=== PATIENT | female | born 1985 | race American Indian/Alaskan Native ===

== ENCOUNTER 2016-09-08 12:02 | Emergency (ER) | payer SELFPAY ==
[2016-09-08 13:35] LABS: Eosinophils % (Auto) 0.9 % (0.0-4.3); Hematocrit 29.6 % (30.3-42.9); Hemoglobin 9.2 gm/dl (10.1-14.3); Mean Corpuscular HGB Conc 31 % (30-34); Mean Corpuscular Volume 77 fl (79-97); Platelet Count 567 K/mm3 (140-440); Red Blood Count 3.86 M/mm3 (3.65-5.03); Red Cell Distribution Width 17.5 % (13.2-15.2); White Blood Count 6.5 K/mm3 (4.5-11.0)
--- NOTE | 2016-09-08 14:09 | Emergency Department Report ---
ED Female HPI - General Chief complaint: Vaginal Bleeding Stated complaint: ? WKS PREG/CRAMPS/BLEEDING Time Seen by Provider: 09/08/16 14:06 Source: patient Mode of arrival: Ambulatory Limitations: No Limitations - History of Present Illness Initial comments: 31-year-old female past medical history one miscarriage and one currently , smoker presents with complaint of one week of intermittent vaginal bleeding and spotting some clot discharge from the vagina. Changing through 3-4-5 pads a day. Patient complaining of crampy lower abdominal pain radiating to back. Denies any fevers or chills no nausea or vomiting. States she took a home test 3 days ago which was positive. Last menstrual period was 07/09/2016 per patient. Denies any dysuria or vaginal discharge otherwise. MD Complaint: vaginal bleeding Onset/Timin -: week(s) Radiation: suprapubic Severity: moderate Severity scale (0 -10): 5 Quality: cramping Consistency: intermittent Improves with: none Worsens with: none Are you Now?: Yes Last Menstrual Period: 07/09/16 EDC: 04/15/17 - Related Data Previous Rx's Medication Instructions Recorded Last Taken Type Acetaminophen [Acetaminophen TAB] 500 mg PO Q6HR PRN #25 tablet 09/08/16 Unknown Rx Allergies Allergy/AdvReac Type Severity Reaction Status Date / Time No Known Allergies Allergy Verified 09/08/16 12:53 ED Review of Systems ROS: Stated complaint: ? WKS PREG/CRAMPS/BLEEDING Other details as noted in HPI Constitutional: denies: chills, fever Eyes: denies: eye pain, eye discharge, vision change ENT: denies: ear pain, throat pain Respiratory: denies: cough, shortness of breath, wheezing Cardiovascular: denies: chest pain, palpitations Endocrine: no symptoms reported Gastrointestinal: denies: abdominal pain, nausea, diarrhea Genitourinary: as per HPI (1 week of intermittent vaginal bleeding). denies: urgency, dysuria, discharge Musculoskeletal: denies: back pain, joint swelling, arthralgia Skin: denies: rash, lesions Neurological: denies: headache, weakness, paresthesias Psychiatric: denies: anxiety, depression Hematological/Lymphatic: denies: easy bleeding, easy bruising ED Past Medical Hx - Past Medical History Previous Medical History?: Yes Hx Asthma: Yes - Surgical History Past Surgical History?: No - Social History Smoking Status: Never Smoker Substance Use Type: Alcohol - Medications Home Medications: Home Medications Medication Instructions Recorded Confirmed Last Taken Type Acetaminophen [Acetaminophen TAB] 500 mg PO Q6HR PRN #25 tablet 09/08/16 Unknown Rx ED Physical Exam - General Limitations: No Limitations General appearance: alert, in no apparent distress - Head Head exam: Present: atraumatic, normocephalic - Eye Eye exam: Present: normal appearance, PERRL, EOMI - ENT ENT exam: Present: mucous membranes moist - Neck Neck exam: Present: normal inspection - Respiratory Respiratory exam: Present: normal lung sounds bilaterally. Absent: respiratory distress - Cardiovascular Cardiovascular Exam: Present: regular rate, normal rhythm. Absent: systolic murmur, diastolic murmur, rubs, gallop - GI/Abdominal GI/Abdominal exam: Present: soft, normal bowel sounds - External exam: Present: normal external exam Speculum exam: Present: vaginal bleeding Bi-manual exam: Present: normal bi-manual exam - Extremities Exam Extremities exam: Present: normal inspection - Back Exam Back exam: Present: normal inspection - Neurological Exam Neurological exam: Present: alert, oriented X3, CN II-XII intact, normal gait - Psychiatric Psychiatric exam: Present: normal affect, normal mood - Skin Skin exam: Present: warm, dry, intact, normal color. Absent: rash ED Course Vital Signs 09/08/16 12:50 Temperature 97.8 F Pulse Rate 79 Respiratory 16 Rate Blood Pressure 110/72 O2 Sat by Pulse 100 Oximetry ED Medical Decision Making - Lab Data Result diagrams: 09/08/16 13:02 09/08/16 14:13 - Medical Decision Making A/P: with vaginal bleeding, possible miscarriage versus early versus ectopic 1-ultrasound shows no sonographic evidence of intrauterine at this time, both ovaries visualized, hCG level 411 2-patient has minimal to no adnexal or cervical motion pain on exam 3-hemoglobin 9.4 hematocrit 29, patient is taking iron supplementation 4- I discussed case with Dr. Pollack, study specialist who is health information tech. As per Dr. Pollack patient to have repeat ultrasound and hCG level in 48 hours either in office or can come to the emergency room if necessary. I instructed the patient to return to the ED in 48 hours for repeat ultrasound and hCG if she cannot schedule an appointment or follow-up with Dr. Pollack in 48 hours. I advised patient that should she develop severe nausea and vomiting fever or chills or vaginal hemorrhage to return to the ED immediately. I also advised to return to the ED if she develops severe sharp abdominal pain with associated heavy bleeding. Patient stated that she understood my instructions clearly and will follow-up with Dr. Pollack or come to the ED if she could not schedule an appointment. Critical care attestation.: If time is entered above; I have spent that time in minutes in the direct care of this critically ill patient, excluding procedure time. ED Disposition Clinical Impression: Vaginal bleeding before 22 weeks gestation, Miscarriage, threatened, early Disposition: TO HOME OR SELFCARE Is pt being admited?: No Does the pt Need Aspirin: No Condition: Stable Instructions: Threatened Miscarriage (ED), Ectopic (ED) Additional Instructions: Patient advised to follow-up in the ED in 48 hours for repeat ultrasound and hCG level if she cannot follow-up with [facility]. I gave patient precautions on ectopic and advised her to return if she develops heavy bleeding with associated sharp pain with fever and chills with associated nausea and vomiting Prescriptions: Acetaminophen [Acetaminophen TAB] 500 mg PO Q6HR PRN #25 tablet PRN Reason: Pain Referrals: [facility] [Provider Group] - 3-5 Days KARLA PEÑA MD [Staff Physician] - 3-5 Days Forms: Work/School Release Form(ED) Time of Disposition: 17:49
[2016-09-08 14:12] LABS: Mean Corpuscular Hemoglobin 24 pg (28-32)
[2016-09-08 14:21] LABS: Bacteria,Urine 1+ /HPF (Negative); Bilirubin,Urine NEG (Negative); Blood,Urine MOD (Negative); Ketones,Urine NEG (Negative); Leukocyte Esterase,Urine NEG (Negative); Mucus,Urine FEW /HPF; Nitrite,Urine NEG (Negative); Protein,Urine <15 mg/dL mg/dL (Negative); WBC,Urine < 1.0 /HPF (0.0-6.0)
[2016-09-08 14:48] LABS: Anion Gap 14 mmol/L; Blood Urea Nitrogen 7 mg/dL (7-17); Calcium 7.8 mg/dL (8.4-10.2); Carbon Dioxide 23 mmol/L (22-30); Chloride 99.9 mmol/L (98-107); Glucose 97 mg/dL (65-100); Potassium 3.9 mmol/L (3.6-5.0); Sodium 133 mmol/L (137-145)
--- NOTE | 2016-09-08 16:30 | Ultrasound Report ---
ULTRASOUND OB LESS THAN 14 WEEKS - TRANSABDOMINAL AND TRANSVAGINAL INDICATION: Vaginal bleeding. 2 months by LMP. Serum beta-hCG of 411 units. COMPARISON: None similar. FINDINGS: Transabdominal and transvaginal pelvic sonography performed in this patient with LMP of 07/09/2016 and estimated menstrual age of 8 weeks and 5 days and EDC of 04/15/2017. An anteverted uterus measuring approximately 8.1 x 3.5 x 4.5 cm demonstrates endometrial thickness of approximately 0.5 cm, endovaginal image 3. No significant pelvic free fluid. Right ovary is 2.7 x 1.1 x 1.8 cm with possible 1.4 cm complex focus/corpus luteum. Left ovary is 4.1 x 1.6 x 2.3 cm. CONCLUSION: 1. No sonographic evidence of a viable intrauterine gestation at this time, as described. 2. Both ovaries visualized. Please also correlate clinically for accuracy of the LMP and with followup serum beta-hCG values, as warranted. Thank you for the opportunity to participate in this patient's care.
[2016-09-08 18:02] VITALS: BP 120/84
== END 2016-09-08 18:04 | disposition home or self-care (01) ==
LOC: ED 12:02
DX: O20.0 Threatened abortion (principal); Z3A.22 22 weeks gestation of pregnancy; O99.512 Diseases of the respiratory system complicating pregnancy, second trimester
CPT/HCPCS: 36415; 76801; 76817; 80048; 81001; 84702; 85025; 86850; 86900; 86901; 87210; 87591